=== PATIENT | male | born 1970 | race Caucasian/White ===

== ENCOUNTER 2018-01-25 18:28 | Emergency (ER) | payer OTHER ==
[2018-01-25] MEDS ORDERED: HYDROcodone/APAP 5-325MG 1 EACH TAB PO STA ×2 (18:46→21:01)
[2018-01-25] MEDS ORDERED: MORPHINE SULFATE 4 MG/ML SYRINGE IM STA (18:46)
[2018-01-25] MEDS ORDERED: LORazepam 1 MG TAB PO STA (18:46)
[2018-01-25] MEDS ORDERED: IBUPROFEN 800 MG TAB PO STA (18:46)
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
--- NOTE | 2018-01-25 21:06 | XR ---
EXAMINATION TYPE: XR wrist complete RT DATE OF EXAM: 01/25/2018 COMPARISON: NONE HISTORY: Pain TECHNIQUE: 3 views FINDINGS: There is an acute slightly impacted transverse fracture of the distal radial metaphysis. Th ere is no dislocation. The carpal bones appear intact. The views are suboptimal. CONCLUSION: Acute fracture distal radius with slight impaction. No obvious carpal bone fracture.
--- NOTE | 2018-01-25 21:07 | XR ---
EXAMINATION TYPE: XR elbow complete RT DATE OF EXAM: 01/25/2018 COMPARISON: NONE HISTORY: Shoulder pain elbow pain TECHNIQUE: 4 views FINDINGS: I see no fracture nor dislocation. Elbow joint spaces are normal. There is no sign of elbow joint effusion. IMPRESSION: Negative right elbow exam.
--- NOTE | 2018-01-25 21:08 | XR ---
EXAMINATION TYPE: XR shoulder complete RT DATE OF EXAM: 01/25/2018 COMPARISON: NONE HISTORY: Shoulder pain TECHNIQUE: 3 views FINDINGS: I see no fracture nor dislocation. Joint spaces are normal. There are no pathologic calcifi cations. IMPRESSION: Negative right shoulder exam.
[2018-01-25 21:46] VITALS: BP 127/74; PULSE 89; RESP 18; TEMP 97.9
--- NOTE | 2018-01-25 21:58 | XR ---
EXAMINATION TYPE: XR wrist limited RT DATE OF EXAM: 01/25/2018 COMPARISON: Today HISTORY: Post reduction TECHNIQUE: 2 views FINDINGS: 2 views are obtained through the cast that show anatomic position of the radius distal frac ture. Carpal bones appear intact. IMPRESSION: Satisfactory reduction. No complicating process seen.
== END 2018-01-25 21:46 | disposition home or self-care (01) ==
LOC: EC 18:28
DX: S52.501A Unspecified fracture of the lower end of right radius, initial encounter for closed fracture (principal); I10 Essential (primary) hypertension; M10.9 Gout, unspecified; F41.9 Anxiety disorder, unspecified; F32.9 Major depressive disorder, single episode, unspecified; F43.10 Post-traumatic stress disorder, unspecified; Z98.890 Other specified postprocedural states; Z79.899 Other long term (current) drug therapy; W23.0XXA Caught, crushed, jammed, or pinched between moving objects, initial encounter; Y92.89 Other specified places as the place of occurrence of the external cause
CPT/HCPCS: 99284; 25605; 73030; 73080; 73100; 73110; J2270

== ENCOUNTER 2018-11-21 14:01 | Emergency (ER) | payer OTHER ==
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
[2018-11-21 14:28] LABS: Glucose,Whole Blood 98 mg/dL (75-99)
[2018-11-21 14:31] LABS: Basophils # (A) 0.1 k/uL (0-0.2); Basophils % (A) 1 %; Eosinophils # (A) 0.3 k/uL (0-0.7); Eosinophils % (A) 4 %; HCT 48.6 % (39.0-53.0); Lymphocytes # (A) 1.5 k/uL (1.0-4.8); Lymphocytes % (A) 20 %; MCH 30.4 pg (25.0-35.0); MCV 92.3 fL (80.0-100.0); Mean Platelet Volume 7.3; Monocytes # (A) 0.4 k/uL (0-1.0); Monocytes % (A) 5 %; Neutrophils # (A) 5.3 k/uL (1.3-7.7); Neutrophils % (A) 69 %; Platelet Count 255 k/uL (150-450); RBC 5.27 m/uL (4.30-5.90); RDW 13.9 % (11.5-15.5); WBC 7.7 k/uL (3.8-10.6)
--- NOTE | 2018-11-21 14:32 | XR ---
EXAMINATION TYPE: XR chest 1V portable DATE OF EXAM: 11/21/2018 COMPARISON: 04/12/2010 HISTORY: Fall. Pain. TECHNIQUE: Single frontal view of the chest is obtained. FINDINGS: Heart and mediastinum are normal. Lungs are clear. Diaphragm is normal. Bony thorax appear s normal. IMPRESSION: Normal chest. No change.
--- NOTE | 2018-11-21 14:33 | XR ---
EXAMINATION TYPE: XR pelvis AP view DATE OF EXAM: 11/21/2018 COMPARISON: NONE HISTORY: Fall. Pain. TECHNIQUE: Single view FINDINGS: Pelvic ring is intact. Proximal femurs and hip joints are intact. There are multiple phlebo liths in the pelvis. Sacroiliac joints appear normal. IMPRESSION: Normal pelvis exam.
[2018-11-21 14:37] LABS: ALT 35 U/L (21-72); AST 30 U/L (17-59); Albumin 4.3 g/dL (3.5-5.0); Alcohol <10 mg/dL; Alkaline Phosphatase 42 U/L (38-126); Amylase 60 U/L (30-110); Anion Gap 7 mmol/L; Blood Urea Nitrogen 14 mg/dL (9-20); Calcium 9.6 mg/dL (8.4-10.2); Carbon Dioxide 21 mmol/L (22-30); Chloride 116 mmol/L (98-107); Glucose 104 mg/dL (74-99); Lipase 101 U/L (23-300); Sodium 144 mmol/L (137-145); Total Bilirubin 0.7 mg/dL (0.2-1.3); Total Protein 6.8 g/dL (6.3-8.2)
[2018-11-21 14:44] LABS: Creatine Kinase 190 U/L (55-170)
[2018-11-21 14:55] LABS: Potassium 4.8 mmol/L (3.5-5.1)
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
[2018-11-21 14:57] LABS: Creatine Kinase MB 2.5 ng/mL (0.0-2.4); Troponin I <0.012 ng/mL (0.000-0.034)
[2018-11-21 15:01] LABS: INR 0.9 (<1.2); Prothrombin Time 9.9 sec (9.0-12.0)
[2018-11-21 15:07] LABS: Partial Thromboplastin Time 21.3 sec (22.0-30.0)
--- NOTE | 2018-11-21 15:38 | XR ---
EXAMINATION TYPE: XR forearm RT DATE OF EXAM: 11/21/2018 COMPARISON: NONE HISTORY: Arm pain TECHNIQUE: 2 views FINDINGS: Elbow joint and wrist joint appear intact. I see no fracture nor dislocation. IMPRESSION: No fracture seen.
--- NOTE | 2018-11-21 15:41 | XR ---
EXAMINATION TYPE: XR humerus RT DATE OF EXAM: 11/21/2018 COMPARISON: NONE HISTORY: Arm pain TECHNIQUE: 2 views FINDINGS: Shoulder joint and elbow joint appear intact. I see no fracture nor dislocation. IMPRESSION: Negative right humerus exam.
== END 2018-11-21 16:12 | disposition short-term general hospital (02) ==
LOC: EC 14:01
DX: S06.0X0A Concussion without loss of consciousness, initial encounter (principal); S40.021A Contusion of right upper arm, initial encounter; I10 Essential (primary) hypertension; F41.9 Anxiety disorder, unspecified; F32.9 Major depressive disorder, single episode, unspecified; Z79.899 Other long term (current) drug therapy; Z88.7 Allergy status to serum and vaccine; Z98.1 Arthrodesis status; V86.52XA Driver of snowmobile injured in nontraffic accident, initial encounter; Y93.29 Activity, other involving ice and snow
CPT/HCPCS: 36415; 70450; 71045; 72125; 72170; 80053; 80320; 82150; 82550; 82553; 83605; 83690; 84484; 85025; 85610; 85730; 86850; 86900; 86901; 99291

== ENCOUNTER 2021-11-04 16:20 | Emergency (ER) | payer OTHER ==
[2021-11-04 16:57] VITALS: BP 150/99; PULSE 97; RESP 18; TEMP 98
--- NOTE | 2021-11-04 18:16 | XR ---
EXAMINATION TYPE: XR knee complete LT DATE OF EXAM: 11/04/2021 COMPARISON: NONE HISTORY: Knee pain. Fall TECHNIQUE: FINDINGS: There is below-knee amputation deformity. I see no fracture nor dislocation. Knee joint spaces are no rmal. There are no pathologic calcifications. There is no sign of joint effusion. IMPRESSION: No acute abnormality of the left knee.
--- NOTE | 2021-11-04 18:20 | XR ---
EXAMINATION TYPE: XR hand limited LT DATE OF EXAM: 11/04/2021 COMPARISON: NONE HISTORY: Fall. Pain TECHNIQUE: 3 views FINDINGS: Metacarpals are intact. I see no fracture nor dislocation. Carpal bones are intact. There a re no erosions. The thumb appears intact. IMPRESSION: Negative left hand exam. No fracture seen.
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
== END 2021-11-04 20:10 | disposition home or self-care (01) ==
LOC: EC 16:20
DX: S89.92XA Unspecified injury of left lower leg, initial encounter (principal); S63.602A Unspecified sprain of left thumb, initial encounter; I10 Essential (primary) hypertension; F41.9 Anxiety disorder, unspecified; F32.A Depression, unspecified; F43.10 Post-traumatic stress disorder, unspecified; Z88.7 Allergy status to serum and vaccine; W00.0XXA Fall on same level due to ice and snow, initial encounter
CPT/HCPCS: 99283

== ENCOUNTER 2024-12-04 11:06 | Inpatient (IN) | payer OTHER, MEDICARE ==
[2024-12-04] MEDS ORDERED: HEPARIN SODIUM 1,000 UN/ML (10ML VL) IV PRN (11:23)
--- NOTE | 2024-12-04 11:26 | ED ---
General Adult HPI - General Stated complaint: Chest pain Time Seen by Provider: 12/04/24 11:17 - History of Present Illness Initial comments: Dictation was produced using [employer] dictation software. please excuse any grammatical, word or spelling errors. Chief Complaint: 53-year-old male with chest pain History of Present Illness: Patient is 53-year-old male presents emergency department chest pain. States his symptoms have been ongoing for the last 2 to 3 hours. States that it is like a pressure on his chest that radiates to his right shoulder. Complains of some tingling in his left arm. Does report some diaphoresis and sweats. Patient has a significant family history. His dad had his first heart attack in his 50s. Patient denies any cardiac history. EMS provided patient with 3 sublingual nitro with slightly improved his symptoms. Iker sheldon was given a prehospital aspirin. The ROS documented in this emergency department record has been reviewed and confirmed by me. Those systems with pertinent positive or negative responses have been documented in the HPI. All other systems are other negative and/or noncontributory. - Related Data Home Medications Medication Instructions Recorded Confirmed DULoxetine HCL [Cymbalta] 60 mg PO BID 01/25/18 11/21/18 Topiramate [Topamax] 100 mg PO BID 01/25/18 11/21/18 allopurinoL [Zyloprim] 300 mg PO DAILY 01/25/18 11/21/18 lisinopriL [Zestril] 20 mg PO DAILY 01/25/18 11/21/18 traZODone HCL 50 - 100 mg PO HS 01/25/18 11/21/18 Previous Rx's Medication Instructions Recorded Acetaminophen-Codeine 300-30mg 1 tab PO Q6H PRN #12 tablet 11/04/21 [Tylenol #3] Allergies Allergy/AdvReac Type Severity Reaction Status Date / Time smallpox vaccine,live Allergy Anaphylaxis Verified 12/04/24 11:26 typhoid vaccine Allergy Anaphylaxis Verified 12/04/24 11:26 Review of Systems ROS Statement: Those systems with pertinent positive or pertinent negative responses have been documented in the HPI. ROS Other: All systems not noted in ROS Statement are negative. Past Medical History Past Medical History: Hypertension Additional Past Medical History / Comment(s): Gout History of Any Multi-Drug Resistant Organisms: None Reported Additional Past Surgical History / Comment(s): Left foot surgery x 5, Right knee surgery x 2, Right shoulder surgery, C5-C7 Fusion, Kidney surgery x 3 Past Psychological History: Anxiety, Depression, PTSD Smoking Status: Never smoker Past Alcohol Use History: Rare Past Drug Use History: None Reported General Exam - General Exam Comments Initial Comments: PHYSICAL EXAM: General Impression: Alert and oriented x3, n acute distress secondary chest pain HEENT: Normocephalic atraumatic, extra-ocular movements intact, pupils equal and reactive to light bilaterally, mucous membranes moist. Cardiovascular: Heart regular rate and rhythm Chest: Able to complete full sentences, no retractions, no tachypnea Abdomen: abdomen soft, non-tender, non-distended, no organomegaly Musculoskeletal: Amputated left lower extremity, no peripheral edema Motor: no focal deficits noted Neurological: CN II-XII grossly intact, no focal motor or sensory deficits noted Skin: Intact with no visualized rashes Psych: Normal affect and mood Course Vital Signs 12/04/24 11:10 Temperature 97.9 F Pulse Rate 65 Respiratory 30 H Rate Blood Pressure 127/92 O2 Sat by Pulse 100 Oximetry - Reevaluation(s) Reevaluation #1: 12/04/24 11:40 Serial EKGs is obtained showing dynamic changes. Code STEMI paged. Case discussed with cardiology. Dr. Mcclellan at the bedside evaluating patient. EKG Findings - EKG Comments: EKG Findings:: My EKG interpretation: Ventricular rate 71, sinus rhythm,. 194, QRS 82, QTc 424. No IL prolongation, no QTC prolongation, subtle ST elevations in anterior precordial leads with depressions in inferior leads Medical Decision Making - Medical Decision Making Was pt. sent in by a medical professional or institution (, PA, [facility], urgent care, hospital, or jail...) When possible be specific @ -No Did you speak to anyone other than the patient for history (EMS, parent, family, police, friend...)? What history was obtained from this source @ -No Did you review nursing and triage notes (agree or disagree)? Why? @ -I reviewed and agree with nursing and triage notes Were old charts reviewed (outside hosp., previous admission, EMS record, old EKG, old radiological studies, urgent care reports/EKG's, jail records)? Report findings @ -No old charts were reviewed Differential Diagnosis (chest pain, altered mental status, abdominal pain women, abdominal pain men, vaginal bleeding, musculoskeletal, weakness, fever, dyspnea, syncope, headache, dizziness, GI bleed, back pain, seizure, CVA, palpatations, mental health)? @ -Differential Chest Pain: Stable Angina, Unstable Angina, STEMI, NSTEMI Aortic Dissection, Pneumothorax, Musculoskeletal, Esophageal Spasm GERD, Cholecystitis, Pancreatitis, Zoster, this is not meant to be an all-inclusive list. EKG interpreted by me (3pts min.). @ -See above X-rays interpreted by me (1pt min.). @ -Pending CT interpreted by me (1pt min.). @ -None done U/S interpreted by me (1pt. min.). @ -None done What testing was considered but not performed or refused? (CT, X-rays, U/S, labs)? Why? @ -None What meds were considered but not given or refused? Why? @ -None Was smoking cessation discussed for >3mins.? @ -No Were there social determinants of health that impacted care today? How? (Homelessness, low income, unemployed, alcoholism, drug addiction, t ransportation, low edu. Level, literacy, decrease access to med. care, alf, rehab)? @ -No Was there de-escalation of care discussed even if they declined (Discuss DNR or withdrawal of care, Hospice)? DNR status @ -No What co-morbidities impacted this encounter? (DM, HTN, Smoking, COPD, CAD, Cancer, CVA, ARF, Chemo, Hep., AIDS, mental health diagnosis, sleep apnea, morbid obesity)? @ -Family history of [place] Was patient admitted / discharged? Hospital course, mention meds given and route, prescriptions, significant lab abnormalities, going to OR and other pertinent info. @ -53-year-old male presents to the emergency department with acute coronary syndrome. Initial EKG questionable for [place]. Serial EKGs performed shortly after showed dynamic changes. Vital signs stable. Patient received aspirin and nitro by prehospital providers. Patient started on heparin. Code STEMI paged. Dr. Mcclellan at the bedside evaluating the patient. Patient will be dispositioned to the Scenario Writer. Case discussed with hospitalist for admission Did you discuss the management of the patient with other professionals (professionals i.e. , PA, [employer], lab, RT, psych nurse, social work specialist, chief lending officer, teacher, chief safety officer, case manager specialist)? Give summary @ -See above Was critical care preformed (if so, how long)? @ -Yes, 33 minutes for STEMI management Undiagnosed new problem with uncertain prognosis? @ -No Drug Therapy requiring intensive monitoring for toxicity (Heparin, Nitro, Insulin, Cardizem)? @ -No Were any procedures done? @ -No Diagnosis/symptom? Acute, or Chronic, or Acute on Chronic? Uncomplicated (without systemic symptoms) or Complicated (systemic symptoms)? @ -STEMI Side effects of treatment? @ -No Exacerbation, Progression, or Severe Exacerbation? @ -No Poses a threat to life or bodily function? How? (Chest pain, [place], [place], pneumonia, PE, COPD, DKA, ARF, appy, cholecystitis, CVA, Diverticulitis, Homicidal, Suicidal, threat to staff... and all critical care pts) @ -yes Disposition Clinical Impression: STEMI (ST elevation myocardial infarction) Disposition: ADMITTED IP TO THIS HOSP Condition: Critical Referrals: Adarsh Nolen DO [Primary Care Provider] - 1-2 days Decision Time: 11:42
[2024-12-04] MEDS: MORPHINE SULFATE 4 MG/ML SYRINGE IV STA (11:38)
[2024-12-04] MEDS: HEPARIN SODIUM 1,000 UN/ML (10ML VL) IV ONE (11:40)
[2024-12-04] MEDS: HYDROmorphone 1 MG/ML 1 ML SYRINGE IVP STA (11:43)
--- NOTE | 2024-12-04 11:52 | XR ---
EXAMINATION TYPE: XR chest 1V portable DATE OF EXAM: 12/04/2024 11:45 AM COMPARISON: Chest radiographs from 11/21/2018 TECHNIQUE: XR chest 1V portable Portable AP radiograph of the chest. CLINICAL INDICATION:Male, 53 years old with history of Chest Pain; FINDINGS: Lungs/Pleura: There is no evidence of pleural effusion, focal consolidation, or pneumothorax. Chroni c elevation of the right hemidiaphragm. Pulmonary vascularity: Unremarkable. Heart/mediastinum: Cardiomediastinal silhouette is unremarkable. Musculoskeletal: No acute osseous pathology. Anterior and posterior cervical fusion hardware. Cervica l stimulator leads are identified. IMPRESSION: No acute cardiopulmonary disease/process. [facility], , 12/04/2024 11:50 AM
[2024-12-04] MEDS: HEPARIN SOD,PORK IN 0.45% NACL 25,000 UNIT in 0.45% NACL 1 250ML.BAG IV SCH (12:00)
[2024-12-04 12:02] LABS: ALT 23 U/L (4-49); AST 29 U/L (17-59); African American GFR (CKD) 82 (>60 ml/min/1.73 sqM); Albumin 4.3 g/dL (3.5-5.0); Alkaline Phosphatase 65 U/L (38-126); Anion Gap 15 mmol/L; Blood Urea Nitrogen 19 mg/dL (9-20); Calcium 9.5 mg/dL (8.4-10.2); Carbon Dioxide 18 mmol/L (22-30); Chloride 106 mmol/L (98-107); Glucose 170 mg/dL (74-99); Non-African American GFR(CKD) 71 (>60 ml/min/1.73 sqM); Potassium 4.2 mmol/L (3.5-5.1); Sodium 139 mmol/L (137-145); Total Bilirubin 0.8 mg/dL (0.2-1.3); Total Protein 6.8 g/dL (6.3-8.2)
[2024-12-04] MEDS: IV FLUID CONTINUATION 1,000 ML IV ONE (12:15)
[2024-12-04] MEDS: fentaNYL (PF) 50 MCG/ML 2 ML AMP IVP ONE (12:16)
[2024-12-04] MEDS: MIDAZOLAM 2 MG/2 ML VIAL IVP ONE (12:16)
[2024-12-04] MEDS: LIDOCAINE 1% INJ 10MG/ML (20 ML MDV) SQ ONE (12:16)
[2024-12-04 12:17] LABS: Basophils % (A) 1 %; Eosinophils # (A) 0.2 k/uL (0-0.7); Eosinophils % (A) 3 %; HCT 49.7 % (39.0-53.0); HGB 15.9 gm/dL (13.0-17.5); Lymphocytes % (A) 17 %; MCH 28.5 pg (25.0-35.0); MCV 88.9 fL (80.0-100.0); Mean Platelet Volume 8.5; Monocytes # (A) 0.3 k/uL (0-1.0); Monocytes % (A) 5 %; Neutrophils # (A) 4.6 k/uL (1.3-7.7); Neutrophils % (A) 74 %; Platelet Count 246 k/uL (150-450); RBC 5.59 m/uL (4.30-5.90); RDW 14.3 % (11.5-15.5); WBC 6.2 k/uL (3.8-10.6)
[2024-12-04] MEDS: VERAPAMIL SYRINGE (5 MG/10 ML) INTRAARTER ONE (12:18)
[2024-12-04] MEDS: HEPARIN SODIUM 1,000 UN/ML (10ML VL) IVP ONE (12:22)
[2024-12-04 12:27] LABS: Partial Thromboplastin Time 20.2 sec (22.0-30.0)
[2024-12-04] MEDS: PRASUGREL 10 MG TAB PO ONE (12:30)
[2024-12-04] MEDS: TIROFIBAN BOLUS 12.5MG/250 ML BAG IV ONE (13:00)
[2024-12-04] MEDS: IOPAMIDOL-370 100ML BTL INJ ONE ×3 (13:06→13:42)
[2024-12-04] MEDS: TIROFIBAN 12.5MG-250ML NS 250 ML IV ONE ×2 (13:06→23:06)
[2024-12-04] MEDS: niCARdipine Syringe (1,000 mcg/10 mL) INTRACORON ONE (13:10)
--- NOTE | 2024-12-04 13:53 | CONS ---
CONSULTATION CHIEF COMPLAINT: Chest pain. HISTORY OF PRESENT ILLNESS: Julio is a 53-year-old gentleman, with history of hypertension, gout, with left leg prosthesis, who presents to hospital with chest pain. His chest discomfort started suddenly around about 2 hours prior to coming to the hospital. He describes it as a pressure-like sensation that radiated to his right shoulder and back. A STEMI alert was activated at around 11:35. The patient's initial EKG that was done at 11:[address]-segment elevation in the precordial leads that had become more pronounced, suggestive of acute anterior wall myocardial infarction. At the time of my evaluation, the patient had chest pain, but stable hemodynamically. There is no prior history of coronary artery disease or congestive heart failure. PAST MEDICAL HISTORY: Significant for hypertension and gout. FAMILY HISTORY: Significant for premature coronary artery disease. SOCIAL HISTORY: Negative for current smoking, EtOH abuse, or drug abuse. REVIEW OF SYSTEMS: A 14 out of 14 review of systems has been performed. Pertinents are as documented. PHYSICAL EXAMINATION: GENERAL: The patient is comfortable at rest, stable hemodynamically. NECK: There is no jugular venous distention. Carotid upstroke is normal. There is no bruit. CHEST: Reveals good air entry bilaterally. HEART: Reveals first and second heart sounds. No gallop. No murmur. No rub. ABDOMEN: Soft. Nontender. Extremities: Did not reveal any edema. Peripheral pulses are felt. IMAGING DATA: EKG shows acute anterior wall myocardial infarction. LABORATORY DATA: Pending. ASSESSMENT AND PLAN: Acute anterior wall myocardial infarction. PLAN: The patient will undergo emergent cardiac catheterization with a view to performing angioplasty. MMODL / IJN: [id number] /
[2024-12-04] MEDS ORDERED: NITROGLYCERIN SL TABS 0.4 MG TAB SUBLINGUAL PRN (13:59)
[2024-12-04] MEDS ORDERED: RX INFO: IV CONTRAST WAS GIVEN 1 EACH MISC MISCELLANE PRN (13:59)
[2024-12-04] MEDS ORDERED: ATROPINE SULFATE 0.1 MG/ML 10ML SYRINGE IV PRN (13:59)
--- NOTE | 2024-12-04 14:11 | P.CARDCATH ---
Date of Procedure: 12/04/24 Description of Procedure: PERCUTANEOUS TRANSLUMINAL CORONARY ANGIOPLASTY CLINICAL INFORMATION: The patient is a 53-year-old male with a prior history of hypertension who presented with an acute anterior wall myocardial infarction. He has a family history of premature CAD. He underwent coronary angiography by Dr. Mcclellan. He was found to have acutely occluded proximal LAD. Recommendations were made regarding angioplasty and stenting. The procedure as well as the risks and the complications were discussed with the patient who was in full understanding and agreement. PROCEDURE: A 6 Tongan CLS 3.5 guiding catheter was introduced into the system. After cannulating the left main, a 0.014 BMW J-wire was advanced across the lesion and positioned distally. Following that a 2.5 x 12 mm trek balloon was advanced and inflated at 8 atmosphere. After removing the balloon a penumbra catheter was advanced and 1 run was done without removing significant thrombotic material. Following that a [employer] eye IVUS catheter was introduced and imaging was performed and revealed a distal lumen of 3.5 mm and proximally 5.5 mm. The lesion was not calcified. following that a 3.5 x 28 mm Xience venkata point stent was deployed. It was dilated at 16 martita. Repeat IVUS imaging was performed and subsequently a 4.0 x 20 mm NC trek balloon was advanced and an inflation at 10 martita was done. Following that there was evidence of no reflow. Repeat penumbra aspiration was done. The patient received intra coronary nicardipine. Subsequently a 3.0 x 20 mm NC trek balloon was advanced and 1 inflation distally was done and after removing the balloon the flow was restored and a 3.25 x 20 mm NC trek balloon was advanced and inflation in the distal segment of the stent was done at 10 martita, a 5.0 x 12 mm NC trek balloon was advanced and 1 inflation in the proximal segment of the stent was done at 10 martita. Repeat IVUS imaging was performed and subsequently the 4.0 x 20 mm NC trek balloon was advanced and inflations in the mid segment of the stent was performed at 10 martita. After the last inflation, after appropriate wait, the balloon and the guidewire were withdrawn back into the guiding catheter. Images were obtained and repeated. Those images reveal stable successful stenting. The 5 Tongan right Angle catheter was used to cross the aortic valve and pressures were measured. At that point, the guiding catheter, the balloon, and guidewire were removed. The sheath was removed. Hemostasis was obtained with deployment of a TR band. There were no immediate complications. The patient was returned to the room in stable condition. Of note, the patient received 6000 units of heparin as well as prasugrel. His ACT was followed. There was no immediate complications. His chest discomfort has resolved at the end of the procedure and his EKG changes improved. RESULTS: Successful stenting of the proximal LAD with reduction of stenosis from 100% to less than 5% with EMILY-3 flow and IVUS imaging. There was slow flow in the diagonal branch but appears to be have retrograde filling. The di stal LAD has intimal disease that could be related to underperfusion and it was decided to treated medically for now. LVEDP: 24 to 26 mmHg RECOMMENDATIONS: The patient will continue on aspirin and prasugrel without any interruption for 1 year in addition to aggressive coronary risks modifications, maintaining LDL less than 70 mg/dL. An echocardiogram will be obtained to evaluate his systolic function and guide his treatment. The findings and recommendations were discussed with the patient and the family, they are in full understanding and agreement. Duration of sedation: 76 minutes
[2024-12-04 14:15] LABS: Glucose,Whole Blood 106 mg/dL (70-110)
[2024-12-04] MEDS: SODIUM CHLORIDE 0.9% 1,000 ML in EMPTY BAG 1 BAG IV SCH (14:53)
--- NOTE | 2024-12-04 15:20 | P.HPIM ---
History of Present Illness H&P Date: 12/04/24 Patient is a 53-year-old male with history of hypertension, and gout presented with STEMI. He claims that he woke up this morning with his chest and a Cooper, pain moved from left to right, and had diaphoresis. He also felt a little lightheaded. Denies any shortness of breath, nausea, vomiting, abdominal pain, urinary or bowel complaints. No fevers or chills. His father had 2 heart at tacks around the same age as him. He denies any smoking, alcohol use or illicit drug use. In the ED, temperature was 97.9, pulse 65, respiratory rate 30, blood pressure 127/92, saturating 100% on room air. WBC 6.2, hemoglobin 15.9, APTT 20.2, potassium 4.2, creatinine 1.17, bicarb 18, anion gap 15, troponin 0.923, magnesium 2. Chest x-ray independently interpreted, showed no opacities. EKG independently interpreted, shows ST elevation in anterior and septal leads, ST depression in inferior leads. Patient taken directly to cardiac cath. Patient had successful stenting of proximal LAD. Patient currently in medical ICU. Pertinent positives and negatives as discussed in HPI, a complete review of systems was performed and all other systems are negative. Patient seen and examined at bedside. Vital signs reviewed General: nontoxic, no distress, appears at stated age Derm: warm, dry Head: atraumatic, normocephalic, symmetric Eyes: EOMI, no lid lag, anicteric sclera, pupils equal round reactive to light ENT: Nose and ears atraumatic Neck: No thyromegaly, supple Mouth: no lip lesion, mucus membranes moist Cardiovascular: S1S2 reg, no murmur, no edema Lungs: clear to auscultation bilateral, no rhonchi, no rales, no wheeze, no accessory muscle use Abdominal: soft, nontender to palpation, no guarding, no appreciable organomegaly Ext: no gross muscle atrophy, muscle strength muscle strength 5 out of 5 in all 4 extremities, no contractures Neuro: CN II-XII grossly intact Psych: Alert, oriented, appropriate affect Assessment/Plan: Active: Acute STEMI status post LAD stent -Continue aspirin 81 mg daily, atorvastatin 80 mg nightly, metoprolol 25 twice daily, Effient 10 mg daily -Cardiology following -Echocardiogram pending -Continue to trend troponin till it peaks -A1c, lipid panel, TSH pending Anion gap metabolic acidosis -Repeat BMP tomorrow Chronic: Gout Neuropathy -Restart home medications once confirmed The patient is admitted with an anticipated greater than 2 midnight stay as inpatient status for evaluation of acute STEMI. Surrogate decision-maker: Son CODE STATUS: Full code DVT prophylaxis: Subcu heparin Anticipated discharge date: Pending clinical course Anticipated discharge place: Pending clinical course A total of 65 minutes was spent on the care of this complex patient more than 50% of the time was spent in counseling and care coordination. Past Medical History Past Medical History: Hypertension Additional Past Medical History / Comment(s): Gout History of Any Multi-Drug Resistant Organisms: None Reported Additional Past Surgical History / Comment(s): Left foot surgery x 5, Right knee surgery x 2, Right shoulder surgery, C5-C7 Fusion, Kidney surgery x 3 Past Psychological History: Anxiety, Depression, PTSD Smoking Status: Never smoker Past Alcohol Use History: Rare Past Drug Use History: None Reported Medications and Allergies Home Medications Medication Instructions Recorded Confirmed Type DULoxetine HCL [Cymbalta] 60 mg PO BID 01/25/18 11/21/18 History Topiramate [Topamax] 100 mg PO BID 01/25/18 11/21/18 History allopurinoL [Zyloprim] 300 mg PO DAILY 01/25/18 11/21/18 History lisinopriL [Zestril] 20 mg PO DAILY 01/25/18 11/21/18 History traZODone HCL 50 - 100 mg PO HS 01/25/18 11/21/18 History Acetaminophen-Codeine 300-30mg 1 tab PO Q6H PRN #12 tablet 11/04/21 Rx [Tylenol #3] Allergies Allergy/AdvReac Type Severity Reaction Status Date / Time smallpox vaccine,live Allergy Anaphylaxis Verified 12/04/24 11:26 typhoid vaccine Allergy Anaphylaxis Verified 12/04/24 11:26 Physical Exam Vitals: Vital Signs Temp Pulse Resp BP Pulse Ox 12/04/24 11:57 68 20 140/96 98 12/04/24 11:52 71 26 H 136/91 99 12/04/24 11:10 97.9 F 65 30 H 127/92 100 Intake and Output 03/15/25 03/16/25 03/16/25 22:59 06:59 14:59 Intake Total 961 Balance 961 Intake: IV 961 Other: Weight 105.233 kg Results CBC & Chem 7: 12/04/24 11:41 12/04/24 11:41 Labs: Abnormal Lab Results - Last 24 Hours (Table) 12/04/24 12/04/24 12/04/24 Range/Units 11:41 11:41 11:41 APTT 20.2 L (22.0-30.0) sec Carbon Dioxide 18 L (22-30) mmol/L Glucose 170 H (74-99) mg/dL Troponin I 0.923 H* (0.000-0.034) ng/mL
[2024-12-04] MEDS: HEPARIN SODIUM,PORCINE 5,000 UNIT/ML 1 ML VIAL SQ SCH (16:15)
[2024-12-04] MEDS ORDERED: PANTOPRAZOLE 40 MG TABLET PO PRN (17:55)
--- NOTE | 2024-12-04 19:32 | CC ---
CARDIAC CATHETERIZATION REPORT INDICATION: Acute anterior wall myocardial infarction. PROCEDURE NOTE: After obtaining informed consent, left heart catheterization and coronary angiogram were performed via the right radial artery using standard Angle catheters. The patient tolerated the procedure well without any obvious immediate complications. FINDINGS: 1. Hemodynamics: Central aortic pressure is 120/70 mm. 2. Left ventriculogram: Not performed. 3. Angiographic data: a.Right coronary artery: A large dominant vessel and is free of significant stenosis. b.Left main coronary artery is a normal-sized vessel and is free of stenosis, divides into left anterior descending coronary artery and circumflex coronary artery. c.LAD appears totally occluded in the proximal portion, which is responsible for the myocardial infarction. CONCLUSION: Acute proximal LAD occlusion. PLAN: The patient will undergo angioplasty with stent placement of the same. MMODL / IJN: [id number] /
[2024-12-04] MEDS: COLCHICINE 0.6 MG EACH PO SCH (20:35)
[2024-12-04] MEDS: SPIRONOLACTONE 25 MG TAB PO SCH (20:36)
[2024-12-04] MEDS: allopurinoL 100 MG TAB PO SCH (20:36)
[2024-12-04] MEDS: ATORVASTATIN 80 MG TAB PO SCH (20:36)
[2024-12-04] MEDS: MAG HYDROX/AL HYDROX/SIMETH 30 ML CUP PO PRN (20:38)
[2024-12-04] MEDS: NITROGLYCERIN SL TABS 0.4 MG TAB SUBLINGUAL PRN (21:41)
[2024-12-04] MEDS: ZOLPIDEM 5 MG TAB PO PRN (23:11)
[2024-12-05] MEDS: HYDROmorphone 0.5 MG/0.5 ML SYRINGE IVP STA ×2 (00:03→06:24)
[2024-12-05 04:54] LABS: Basophils % (A) 0 %; Eosinophils # (A) 0.1 k/uL (0-0.7); Eosinophils % (A) 1 %; HCT 46.2 % (39.0-53.0); HGB 14.5 gm/dL (13.0-17.5); Lymphocytes # (A) 1.2 k/uL (1.0-4.8); Lymphocytes % (A) 11 %; MCH 28.3 pg (25.0-35.0); MCHC 31.4 g/dL (31.0-37.0); MCV 90.2 fL (80.0-100.0); Mean Platelet Volume 8.2; Monocytes # (A) 0.5 k/uL (0-1.0); Monocytes % (A) 5 %; Neutrophils # (A) 8.6 k/uL (1.3-7.7); Neutrophils % (A) 82 %; Platelet Count 226 k/uL (150-450); RBC 5.12 m/uL (4.30-5.90); RDW 14.3 % (11.5-15.5); WBC 10.4 k/uL (3.8-10.6)
[2024-12-05 06:42] LABS: African American GFR (CKD) >90 (>60 ml/min/1.73 sqM); Anion Gap 8 mmol/L; Blood Urea Nitrogen 13 mg/dL (9-20); Calcium 9.2 mg/dL (8.4-10.2); Carbon Dioxide 25 mmol/L (22-30); Chloride 105 mmol/L (98-107); Glucose 115 mg/dL (74-99); Non-African American GFR(CKD) >90 (>60 ml/min/1.73 sqM); Potassium 4.2 mmol/L (3.5-5.1); Sodium 138 mmol/L (137-145)
[2024-12-05] MEDS ORDERED: HEPARIN SODIUM,PORCINE (1 ML) 2,500 UNIT in SODIUM CHLORIDE 0.9% 250 ML IRRIGATION PRN (07:00)
[2024-12-05] MEDS ORDERED: HEPARIN SODIUM,PORCINE 10,000 UNIT in SODIUM CHLORIDE 0.9% 1,000 ML IRRIGATION PRN (07:00)
[2024-12-05] MEDS: IV FLUID CONTINUATION 1,000 ML IV ONE (08:00)
[2024-12-05] MEDS: fentaNYL (PF) 50 MCG/ML 2 ML AMP IVP ONE (08:04)
[2024-12-05] MEDS: LIDOCAINE 1% INJ 10MG/ML (20 ML MDV) SQ ONE (08:07)
[2024-12-05] MEDS: VERAPAMIL SYRINGE (5 MG/10 ML) INTRAARTER ONE (08:10)
[2024-12-05] MEDS: HEPARIN SODIUM 1,000 UN/ML (10ML VL) IVP ONE (08:24)
[2024-12-05] MEDS ORDERED: ASPIRIN 325 MG TAB PO SCH (09:00)
[2024-12-05 09:29] LABS: Chol/HDL Ratio 4.78 Ratio; LDL Cholesterol,Calculated 97.1 mg/dL (0.0-131.0)
[2024-12-05] MEDS: IOPAMIDOL-370 100ML BTL INJ ONE (09:40)
[2024-12-05] MEDS: MIDAZOLAM 2 MG/2 ML VIAL IVP ONE (09:45)
[2024-12-05] MEDS: PRASUGREL 10 MG TAB PO ONE (09:55)
[2024-12-05] MEDS: ASPIRIN 325 MG TAB PO ONE (09:56)
[2024-12-05] MEDS: SODIUM CHLORIDE 0.9% 1,000 ML IV ONE (09:57)
[2024-12-05] MEDS: IOPAMIDOL-300 100ML BTL INJ ONE (10:07)
[2024-12-05] MEDS ORDERED: ATROPINE SULFATE 0.1 MG/ML 10ML SYRINGE IV PRN (10:20)
[2024-12-05] MEDS ORDERED: MAG HYDROX/AL HYDROX/SIMETH 30 ML CUP PO PRN (10:20)
[2024-12-05] MEDS ORDERED: ZOLPIDEM 5 MG TAB PO PRN (10:20)
[2024-12-05] MEDS ORDERED: NITROGLYCERIN SL TABS 0.4 MG TAB SUBLINGUAL PRN (10:20)
[2024-12-05] MEDS ORDERED: RX INFO: IV CONTRAST WAS GIVEN 1 EACH MISC MISCELLANE PRN (10:20)
--- NOTE | 2024-12-05 10:31 | P.CARDCATH ---
Date of Procedure: 12/05/24 Description of Procedure: PERCUTANEOUS TRANSLUMINAL CORONARY ANGIOPLASTY CLINICAL INFORMATION: The patient is a 53-year-old male with known history of prior hypertension, family history of premature CAD who presented on December 04 with an acute anterior wall myocardial infarction and acute occlusion of the p roximal LAD. He underwent stenting with quaker of flow and EMILY-3 flow and resolution of his pain. During the night he had mild discomfort that subsequently improved and earlier this morning he had recurrent chest discomfort with no ST elevation but with ST segment depression on the lateral limb leads. In view of his symptoms recommendation was made regarding repeating angiography and if needed angioplasty and stenting. The procedure as well as the risks and the complications were discussed with the patient who was in full understanding and agreement. PROCEDURE: The patient was brought to the [facility] in the fasting semisedated state after receiving fentanyl and Medrol. Using Xylocaine anesthesia in the Seldinger technique a 6 Guatemalan sheath was introduced in the left radial artery. A 6 Guatemalan CLS 3.5 guiding catheter was introduced into the system. After cannulating the left main, attempt to advance a 0.014 BMW J-wire with a TelePort microcatheter were unsuccessful. The wire was removed and a 0.014 whisper J was advanced across the lesion and positioned distally. The wire was exchanged over the TelePort microcatheter to a BMW J-wire. Following that a 3.0 x 12 mm trek balloon was advanced and inflated at 8 atmosphere in multiple locations, then a 2.5 x 12 mm trek balloon was advanced and inflation in the midsegment was done. After removing the balloon a [employer] eye IVUS catheter was introduced and revealed diffuse disease distally as well as under deployment proximally. Following that a 2.5 x 38 mm Xience venkata point stent stent was deployed in the midsegment. It was dilated at 16 martita. After removing the balloon another 2.5 x 12 mm Xience venkata point stent was deployed distal to the first 1 at 16 martita. Repeat IVUS imaging was performed and revealed good apposition of the distal stents. Subsequently a 4.5 x 15 mm NC trek balloon was advanced and multiple inflations in the proximal segment were done at 10 martita. After removing the balloon a 5.0 x 15 mm Xience venkata point stent was deployed at the ostium at 16 martita. Repeat IVUS imaging was performed and subsequently a 4.5 x 15 mm Xience venkata point stent was deployed inside the stent that was performed yesterday with the possibility of a flap dropping into the vessel through the stent. Repeat IVUS imaging was performed. A 5.5 x 12 mm trek balloon was advanced proximally and inflations were done at 10 martita. A guide liner 6 Guatemalan was used to help through the procedure. After the last inflation, after appropriate wait, the balloon and the guidewire were withdrawn back into the guiding catheter. Images were obtained and repeated. Those images reveal stable successful stenting. At that point, the guiding catheter, the balloon, and guidewire were removed. The sheath was removed. Hemostasis was obtained with deployment of a TR band. There were no immediate complications. The patient was returned to the room in stable condition. Of note, the patient received 14,000 units of heparin as well as continued on prasugrel. His ACT was followed. There was no immediate complications. His chest discomfort almost resolved at the end of the procedure and his EKG changes normalized RESULTS: Successful stenting of the proximal and mid LAD with reduction of stenosis from 100% to less than 5% with IVUS imaging and EMILY-3 flow. RECOMMENDATIONS: The patient will continue on aspirin and prasugrel in addition to aggressive coronary risks modification, attempting to maintain LDL below 70 mg/dL. An echocardiogram will be obtained to evaluate his systolic function. The findings and recommendations were discussed with the patient and he was in full understanding and agreement. Duration of sedation: 120 minutes
--- NOTE | 2024-12-05 10:38 | P.PN ---
Subjective Progress Note Date: 12/05/24 12/05/2024 patient seen and examined at bedside. Patient still having chest pain overnight. Cardiology plans to have repeat cath today. Labs today: WBC 10.4, hemoglobin 14.5, platelet count 2 26,000, sodium 138, potassium 4.2, chloride 105, bicarb 25, BUN 13, creatinine 0.88, glucose 115. Lipid panel showed elevated triglycerides at 163, LDL 97, HDL 34.3. TSH 0.8 Review of systems: Pertinent positives and negatives as discussed in HPI, a complete review of systems was performed and all other systems are negative. Physical examination: Vital signs reviewed General: non toxic, no distress, appears at stated age Derm: no unusual rashes/lesions, warm Head: atraumatic, normocephalic, symmetric Eyes: EOMI, anicteric sclera, pupils equal round reactive to light ENT: Nose and ears atraumatic Neck: No cervical lymphadenopathy, trachea midline, supple Mouth: no lip lesion, mucus membranes moist Cardiovascular: S1S2 reg, no murmur Lungs: CTA bilateral, no rhonchi, no rales, no accessory muscle use Abdominal: soft, nontender to palpation, no guarding Ext: muscle strength 5 out of 5 in all 4 extremities grossly, no gross muscle atrophy, no contractures, positive dorsalis pedis pulse present on right lower extremity and both upper extremities, no edema, left prosthetic leg noted Neuro: CN II-XI grossly intact, no gross focal neuro deficits Psych: Alert and oriented x3, appropriate affect and mood Assessment/Plan: 53-year-old male with hypertension, gout here for evaluation of chest pain. Found to have STEMI on EKG. Status post cath with LAD stent day 1 Active: #. Acute STEMI status post LAD stents #. Hyperlipidemia -Continue aspirin 81 mg daily, atorvastatin 80 mg nightly, metoprolol 25 twice daily, Effient 10 mg daily -Cardiology following. Will repeat cardiac cath today due to persistent chest pain -Echocardiogram pending -Continue to trend troponin till it peaks. -A1c 5.9 - lipid panel showed elevated triglycerides -TSH normal at 0.8 #. Anion gap metabolic acidosis, resolved Chronic: #. Gout #. Neuropathy -Restart home allopurinol, colchicine CODE STATUS: Full code DVT prophylaxis: Subcu heparin Anticipated discharge date: Pending clinical course Anticipated discharge place: Pending clinical course Georgette Goldstein MD PGY-1/Mill Order Scheduler Dictation was produced using [employer] dictation software. please excuse any grammatical, word or spelling errors. Patient is critically ill in ICU. needs close monitoring. prognosis guarded. I have seen and evaluated the patient today. Discussed with the resident and agree with the residents finding and plan as documented in the resident's note. Changes highlighted in blue font. Objective - Vital Signs Vital signs: Vital Signs Temp 98.4 F 12/05/24 04:00 Pulse 63 12/05/24 07:00 Resp 17 12/05/24 07:00 BP 130/92 12/05/24 07:00 Pulse Ox 94 L 12/05/24 07:00 FiO2 4 12/05/24 00:00 Intake & Output 12/04/24 12/05/24 12/05/24 18:59 06:59 18:59 Intake Total 1616.6 128.9 10 Output Total 0 1125 Balance 1616.6 -996.1 10 Weight 111.4 kg 113 kg Intake: IV 1256.6 128.9 10 Sodium Chloride 0.9% 1, 220 110 10 000 ml In Empty Bag 1 bag @ 1 ML/KG/HR 105.233 mls /hr IV .[id number] [facility] Rx#: [id number] Tirofiban 12.5MG-250Ml Ns 75.6 18.9 250 ml @ 0 mls/hr IV . [facility] Rx#: [id number] Oral 360 Output: Urine 0 1125 Other: Voiding Method Urinal Urinal - Labs CBC & Chem 7: 12/05/24 04:19 12/05/24 05:41 Labs: Abnormal Lab Results - Last 24 Hours (Table) 12/04/24 12/04/24 12/04/24 Range/Units 11:41 11:41 11:41 Neutrophils # (1.3-7.7) k/uL APTT 20.2 L (22.0-30.0) sec Carbon Dioxide 18 L (22-30) mmol/L Glucose 170 H (74-99) mg/dL Troponin I 0.923 H* (0.000-0.034) ng/mL 12/04/24 12/04/24 12/05/24 Range/Units 14:41 17:46 04:19 Neutrophils # 8.6 H (1.3-7.7) k/uL APTT (22.0-30.0) sec Carbon Dioxide (22-30) mmol/L Glucose (74-99) mg/dL Troponin I 20.700 H* 83.300 H* (0.000-0.034) ng/mL 12/05/24 Range/Units 05:41 Neutrophils # (1.3-7.7) k/uL APTT (22.0-30.0) sec Carbon Dioxide (22-30) mmol/L Glucose 115 H (74-99) mg/dL Troponin I (0.000-0.034) ng/mL
[2024-12-05] MEDS: ASPIRIN 325 MG TAB PO STA (10:40)
[2024-12-05] MEDS: PRASUGREL 10 MG TAB PO SCH (10:41)
[2024-12-05] MEDS: SODIUM CHLORIDE 0.9% 1,000 ML in EMPTY BAG 1 BAG IV SCH (10:43)
[2024-12-05] MEDS: METOPROLOL TARTRATE 25 MG TAB PO SCH (10:46)
[2024-12-05 14:42] VITALS: BMI 31.1
[2024-12-06 06:11] LABS: Basophils # (A) 0.1 k/uL (0-0.2); Basophils % (A) 0 %; Eosinophils # (A) 0.1 k/uL (0-0.7); Eosinophils % (A) 1 %; HCT 46.3 % (39.0-53.0); HGB 14.5 gm/dL (13.0-17.5); Lymphocytes # (A) 1.6 k/uL (1.0-4.8); Lymphocytes % (A) 15 %; MCH 27.9 pg (25.0-35.0); MCHC 31.4 g/dL (31.0-37.0); Mean Platelet Volume 8.4; Monocytes # (A) 0.8 k/uL (0-1.0); Monocytes % (A) 8 %; Neutrophils # (A) 7.9 k/uL (1.3-7.7); Neutrophils % (A) 75 %; Platelet Count 198 k/uL (150-450); RDW 14.3 % (11.5-15.5); WBC 10.6 k/uL (3.8-10.6)
[2024-12-06 06:32] LABS: African American GFR (CKD) >90 (>60 ml/min/1.73 sqM); Anion Gap 6 mmol/L; Blood Urea Nitrogen 10 mg/dL (9-20); Calcium 9.2 mg/dL (8.4-10.2); Carbon Dioxide 24 mmol/L (22-30); Chloride 103 mmol/L (98-107); Glucose 93 mg/dL (74-99); Non-African American GFR(CKD) >90 (>60 ml/min/1.73 sqM); Potassium 3.9 mmol/L (3.5-5.1); Sodium 133 mmol/L (137-145)
[2024-12-06] MEDS: ASPIRIN 81 MG PO SCH (08:13)
--- NOTE | 2024-12-06 10:22 | CA ---
Transthoracic Echo Report Name: Julio Reno Age: 53 Gender: M : 1970 Exam Date: 12/05/2024 13:06 Exam Location: [facility] Ht (in): 73 Wt (lb): 232 Ordering Physician: All Monroe MD ([id number]) Attending/Referring Phys: Crewman Armoured Personnel Carrier [id number] Yesenia Moore RDCS Procedure CPT: Indications: KS Cardiac Hx: 4 stents placed Technical Quality: Technically difficult study Contrast 1: Definity Total Dose (mL): 3 Contrast 2: Total Dose (mL): MEASUREMENTS (Male / Female) Normal Values 2D ECHO LV Diastolic Diameter PLAX 4.6 cm 4.2 - 5.9 / 3.9 - 5.3 cm LV Systolic Diameter PLAX 3.7 cm IVS Diastolic Thickness 1.5 cm 0.6 - 1.0 / 0.6 - 0.9 cm LVPW Diastolic Thickness 1.6 cm 0.6 - 1.0 / 0.6 - 0.9 cm LV Relative Wall Thickness 0.7 LVOT Diameter 2.3 cm LV Diastolic Volume MOD 4C 196.7 cm??? LV Systolic Volume MOD 4C 118.8 cm??? LV Ejection Fraction MOD 4C 39.6 % LV Cardiac Index MOD 4C 2516.3 cm???/min???m??? LV Diastolic Length 4C 9.3 cm LV Systolic Length 4C 8.2 cm LV Cardiac Index 4C AL 2710.0 cm???/min???m??? LV Diastolic Volume MOD 2C 147.1 cm??? LV Systolic Volume MOD 2C 90.8 cm??? LV Ejection Fraction MOD 2C 38.3 % LV Cardiac Index MOD 2C 1818.6 cm???/min???m??? LV Diastolic Length 2C 8.3 cm LV Systolic Length 2C 8.2 cm LV Cardiac Index 2C AL 2218.1 cm???/min???m??? Aorta at Sinuses Diameter 3.4 cm DOPPLER AV Peak Velocity 104.4 cm/s AV Peak Gradient 4.4 mmHg AV Mean Velocity 71.6 cm/s AV Mean Gradient 2.4 mmHg AV Velocity Time Integral 17.9 cm LVOT Peak Velocity 93.5 cm/s LVOT Peak Gradient 3.5 mmHg LVOT Velocity Time Integral 16.0 cm LVOT Stroke Volume 66.9 cm??? LVOT Stroke Volume Index 29.2 ml/m??? LVOT Cardiac Index 2159.6 cm???/min???m??? AV Area Cont Eq vti 3.7 cm??? AV Area Cont Eq pk 3.8 cm??? Mitral E Point Velocity 47.3 cm/s Mitral A Point Velocity 65.4 cm/s Mitral E to A Ratio 0.7 MV Deceleration Time 155.1 ms MV E' Velocity 4.9 cm/s Mitral E to MV E' Ratio 9.7 LV E' Lateral Velocity 7.4 cm/s Mitral E to LV E' Lateral Ratio 6.4 PV Peak Velocity 98.3 cm/s PV Peak Gradient 3.9 mmHg FINDINGS Left Ventricle Left ventricular ejection fraction is estimated at 40 %. Moderately increased septal wall thickness. Mild left ventricular dilatation. There is hypokinesia involving the mid to anteroapical wall adjoining anteroapical lateral wall and mid to distal anteroseptal wall. Right Ventricle Normal right ventricular size and function. Unable to estimate the right ventricular systolic pressure. Right Atrium Normal right atrial size. Left Atrium Mildly increased left atrial area. Mitral Valve Structurally normal mitral valve. No evidence for mitral valve prolapse. No mitral stenosis. Trace mitral regurgitation. Aortic Valve Trileaflet aortic valve. No aortic valve stenosis or regurgitation. Tricuspid Valve Structurally normal tricuspid valve. No tricuspid stenosis. No tricuspid regurgitation. Pulmonic Valve Structurally normal pulmonic valve. No pulmonic stenosis. Mild pulmonic regurgitation. Pericardium No pericardial effusion. Aorta Aortic annulus normal. Ascending aorta not well visualized. CONCLUSIONS Left ventricle is mildly dilated with akinesia to severe hypokinesia involving the mid to distal anteroseptal apical and anterolateral wall with estimate ejection fraction of 35 to 40%. Mild mitral and tricuspid regurgitation. No pericardial effusion Previewed by: Dr. Ciro Albert MD (Electronically Signed) Final Date: 06 December 2024 10:21
[2024-12-06] MEDS: DAPAGLIFLOZIN PROPANEDIOL 10 MG TABLET PO SCH (11:08)
--- NOTE | 2024-12-06 12:14 | P.PN ---
Subjective Progress Note Date: 12/06/24 12/05/2024 patient seen and examined at bedside. Patient still having chest pain overnight. Cardiology plans to have repeat cath today. Labs today: WBC 10.4, hemoglobin 14.5, platelet count 2 26,000, sodium 138, potassium 4.2, chloride 105, bicarb 25, BUN 13, creatinine 0.88, glucose 115. Lipid panel showed elevated triglycerides at 163, LDL 97, HDL 34.3. TSH 0.8 12/06/2024 patient seen and examined at bedside. No acute events overnight. Cardiac cath with stents placed done yesterday. No new complaints Labs: WBC 10.6 hemoglobin 14.5, platelet count 1 98,000, sodium 133, potassium 3.9, bicarb 24, BUN 10, creatinine 0.89, calcium 9.2. Troponin 68.7 Imaging; echocardiogram showed left ventricular ejection fraction estimated 40%, moderately increased septal wall thickness and mild dilatation with akinesia to severe hypokinesia, mild mitral and tricuspid regurgitation. Review of systems: Pertinent positives and negatives as discussed in HPI, a complete review of systems was performed and all other systems are negative. Physical examination: Vital signs reviewed General: non toxic, no distress, appears at stated age Derm: no unusual rashes/lesions, warm Head: atraumatic, normocephalic, symmetric Eyes: EOMI, anicteric sclera, pupils equal round reactive to light ENT: Nose and ears atraumatic Neck: No cervical lymphadenopathy, trachea midline, supple Mouth: no lip lesion, mucus membranes moist Cardiovascular: S1S2 reg, no murmur Lungs: CTA bilateral, no rhonchi, no rales, no accessory muscle use Abdominal: soft, nontender to palpation, no guarding Ext: muscle strength 5 out of 5 in all 4 extremities grossly, no gross muscle atrophy, no contractures, positive dorsalis pedis pulse present on right lower extremity and both upper extremities, no edema, left prosthetic leg noted Neuro: CN II-XI grossly intact, no gross focal neuro deficits Psych: Alert and oriented x3, appropriate affect and mood Assessment/Plan: 53-year-old male with hypertension, gout here for evaluation of chest pain. Found to have STEMI on EKG. Status post cath with LAD stent day Active: #. Acute STEMI status post LAD cath with stents placed #. Ischemic cardiomyopathy EF 35 to 40% #. Hyperlipidemia -Continue aspirin 81 mg daily, atorvastatin 80 mg nightly, metoprolol 25 twice daily, Effient 10 mg daily -Cardiology following. Initiated Zestril 2.5 p.o., metoprolol tartrate p.o., Aldactone 25 mg p.o. -Initiated dapagliflozin 10 mg p.o. daily -Echocardiogram left ventricular ejection fraction estimated 40%, moderately increased septal wall thickness and mild dilatation with akinesia to severe hypokinesia, mild mitral and tricuspid regurgitation. -Last troponin 67.8 -A1c 5.9 - lipid panel showed elevated triglycerides -TSH normal at 0.8 #. Anion gap metabolic acidosis, resolved Chronic: #. Gout #. Neuropathy -Restart home allopurinol, colchicine CODE STATUS: Full code DVT prophylaxis: Subcu heparin Anticipated discharge date: Pending clinical course Anticipated discharge place: Pending clinical course Georgette Goldstein MD PGY-1/Jigger Operator Dictation was produced using [employer] dictation software. please excuse any grammatical, word or spelling errors. I have seen and evaluated the patient today. Discussed with the resident and agree with the residents finding and plan as documented in the resident's note. Changes highlighted in blue font. Objective - Vital Signs Vital signs: Vital Signs Temp 98.4 F 12/06/24 04:00 Pulse 81 12/06/24 06:00 Resp 22 12/06/24 06:00 BP 105/70 12/06/24 06:00 Pulse Ox 94 L 12/06/24 06:00 FiO2 4 12/05/24 00:00 Intake & Output 12/05/24 12/05/24 12/06/24 06:59 18:59 06:59 Intake Total 128.9 1641 240 Output Total 1125 1700 1575 Balance -996.1 -59 -1335 Weight 113 kg 113 kg 113.2 kg Intake: IV 128.9 1101 Sodium Chloride 0.9% 1, 110 10 000 ml In Empty Bag 1 bag @ 1 ML/KG/HR 105.233 mls /hr IV .Q9H31M [facility] Rx#: [id number] Sodium Chloride 0.9% 1, 791 000 ml In Empty Bag 1 bag @ 1 ML/KG/HR 113 mls/hr IV .Q8H51M [facility] Rx#: [id number] Tirofiban 12.5MG-250Ml Ns 18.9 250 ml @ 0 mls/hr IV . [facility] Rx#: [id number] Oral 540 240 Output: Urine 1125 1700 1575 Other: Voiding Method Urinal Urinal Urinal - Labs CBC & Chem 7: 12/06/24 05:32 12/06/24 05:32 Labs: Abnormal Lab Results - Last 24 Hours (Table) 12/05/24 12/05/24 12/06/24 Range/Units 04:19 18:41 05:32 Neutrophils # (1.3-7.7) k/uL Sodium 133 L (137-145) mmol/L Troponin I 68.700 H* (0.000-0.034) ng/mL Triglycerides 163.00 H (0.00-149.00) mg/dL HDL Cholesterol 34.30 L (40.00-60.00) mg/dL 12/06/24 Range/Units 05:32 Neutrophils # 7.9 H (1.3-7.7) k/uL Sodium (137-145) mmol/L Troponin I (0.000-0.034) ng/mL Triglycerides (0.00-149.00) mg/dL HDL Cholesterol (40.00-60.00) mg/dL
--- NOTE | 2024-12-06 15:04 | P.PN ---
Subjective Progress Note Date: 12/06/24 The patient is a 53-year-old male who presented to the hospital with new onset of chest discomfort. He was found to have acute anterior wall myocardial infarction and acute occlusion of the proximal LAD. He underwent stenting of his LAD on December [address] Monroe. The patient developed chest pain overnight and ST depression noted in lateral limb leads. Patient returned to the OR, where he underwent repeat stenting. According to interventionalists procedure notes there is a possibility of a flap dropping into the vessel throughout the stent as well as the need for mid LAD stenting. Patient interviewed and examined sitting up in the recliner chair. He states he has done well since he was in the operating room yesterday morning. No recurrence in symptoms. No dizziness or lightheadedness when standing. No palpitations. GENERAL: Well-appearing, well-nourished and in no acute distress. NECK: Supple without JVD or thyromegaly. LUNGS: Breath sounds clear to auscultation bilaterally. Respiration equal and unlabored. No wheezes, rales or rhonchi. HEART: Regular rate and rhythm without murmurs, rubs or gallops. S1 and S2 heard. EXTREMITIES: Normal range of motion, no edema. No clubbing or cyanosis. Peripheral pulses intact and strong. Bilateral cath sites are clean dry and intact TELEMETRY: Sinus rhythm overnight LABS: Sodium 133, potassium 3.9, BUN 10, creatinine 0.89, WBC 10.6, hemoglobin 14.5, hematocrit 46.3 and platelet 198. Triglycerides 163, LDL 97 and HDL 34 IMPRESSION: ST elevated myocardial infarction, anterior Coronary artery disease Ischemic cardiomyopathy, EF 35 to 40%, mid to distal anteroseptal apical and anterolateral hypokinesis PLAN: Continue maximal medical treatment for cardiomyopathy Continue dual antiplatelet therapy Encourage ambulation throughout the unit and downgrade to 3 S. Anticipate discharge within the next 24 to 48 hours I am dictating on behalf of Dr Juarez Russell's history/physical and assessment/plan. Objective - Vital Signs Vital signs: Vital Signs Temp 98.0 F 12/06/24 12:00 Pulse 80 12/06/24 12:00 Resp 14 12/06/24 12:00 BP 96/66 12/06/24 12:00 Pulse Ox 97 12/06/24 12:00 FiO2 4 03/17/25 00:00 Intake & Output 12/05/24 12/06/24 12/06/24 18:59 06:59 18:59 Intake Total 1641 240 Output Total 1700 1575 0 Balance -59 -1335 0 Weight 113 kg 113.2 kg Intake: IV 1101 Sodium Chloride 0.9% 1, 10 000 ml In Empty Bag 1 bag @ 1 ML/KG/HR 105.233 mls /hr IV .Q9H31M [facility] Rx#: [id number] Sodium Chloride 0.9% 1, 791 000 ml In Empty Bag 1 bag @ 1 ML/KG/HR 113 mls/hr IV .Q8H51M [facility] Rx#: [id number] Oral 540 240 Output: Urine 1700 1575 0 Other: Voiding Method Urinal Urinal Toilet - Labs CBC & Chem 7: 12/06/24 05:32 12/06/24 05:32 Labs: Abnormal Lab Results - Last 24 Hours (Table) 12/05/24 12/06/24 12/06/24 Range/Units 18:41 05:32 05:32 Neutrophils # 7.9 H (1.3-7.7) k/uL Sodium 133 L (137-145) mmol/L Troponin I 68.700 H* (0.000-0.034) ng/mL
[2024-12-07 00:28] VITALS: RESP 18
[2024-12-07 08:22] VITALS: BP 126/64; PULSE 80; TEMP 97.8
[2024-12-07] MEDS ORDERED: METOPROLOL SUCCINATE (ER) 50 MG TAB.ER.24H PO SCH (09:45)
[2024-12-07] MEDS: METOPROLOL TARTRATE 25 MG TAB PO STA (12:19)
--- NOTE | 2024-12-07 13:22 | P.PN ---
Subjective HISTORY OF PRESENT ILLNESS: Patient examined this morning the bedside. Patient currently denies chest pain or pressure. He denies shortness of breath. Vital signs are stable. Patient has been up ambulating without any difficulty. PHYSICAL EXAM: VITAL SIGNS: Reviewed. GENERAL: Well-developed in no acute distress. NECK: Supple. No JVD or thyromegaly LUNGS: Respirations even and unlabored. Lungs essentially clear to auscultation bilaterally. HEART: Regular rate and rhythm. S1 and S2 heard. EXTREMITIES: Normal range of motion. No clubbing or cyanosis. Peripheral pulses intact. No lower extremity edema ASSESSMENT: Acute STEMI, status post stenting of the proximal LAD 12/04/2024, with repeat heart cath 12/05/2024 with stenting to proximal LAD Ischemic cardiomyopathy PLAN: Continue dual antiplatelet therapy with aspirin and Effient for 12 months Continue high intensity statin. LDL goal less than 70. Continue additional cardiac medications Patient stable for discharge home today from a cardiac standpoint Patient to follow-up postdischarge in the office Nurse practitioner note has been reviewed by physician. Signing provider agrees with the documented findings, assessment, and plan of care documented by [employer] as a scribe. Objective - Vital Signs Vital signs: Vital Signs Temp 97.8 F 12/07/24 08:20 Pulse 80 12/07/24 08:20 Resp 18 12/07/24 08:20 BP 126/64 12/07/24 08:20 Pulse Ox 97 12/07/24 08:20 FiO2 4 12/05/24 00:00 Intake & Output 12/06/24 12/07/24 12/07/24 18:59 06:59 18:59 Intake Total 240 118 Output Total 0 Balance 240 118 Weight 107 kg Intake: Oral 240 118 Output: Urine 0 Other: Voiding Method Toilet Toilet Toilet # Voids 2 1 1 - Labs CBC & Chem 7: 12/06/24 05:32 12/06/24 05:32
--- NOTE | 2024-12-07 15:34 | P.DS ---
Providers Date of admission: 12/04/24 11:33 Expected date of discharge: 12/07/24 Attending physician: Antonino Pulido Consults: 12/04/24 11:35 Consult Physician Urgent Consulting Provider: Ralu Mcclellan Consult Reason/Comments: acs Do you want consulting provider notified?: Already Contacted 12/04/24 13:59 Consult Physician Routine Consulting Provider: [facility] Consult Reason/Comments: Post Interventional Patient Do you want consulting provider notified?: Already Contacted 12/05/24 10:20 Consult Physician Routine Consulting Provider: [facility] Consult Reason/Comments: Post Interventional Patient Do you want consulting provider notified?: Already Contacted Primary care physician: [facility] Hospital Course: Hospital Course: Patient is a 53-year-old male with history of hypertension, and gout presented with STEMI. He claims that he woke up this morning with his chest and a Cooper, pain moved from left to right, and had diaphoresis. In the ED, temperature was 97.9, pulse 65, respiratory rate 30, blood pressure 127/92, saturating 100% on room air. WBC 6.2, hemoglobin 15.9, APTT 20.2, potassium 4.2, creatinine 1.17, bicarb 18, anion gap 15, troponin 0.923, magnesium 2. Chest x-ray independently interpreted, showed no opacities. EKG independently interpreted, shows ST elevation in anterior and septal leads, ST depression in inferior leads. Patient was admitted for the evaluation of acute STEMI. Cardiac telemetry, aspirin, atorvastatin, echocardiogram, trending troponins, A1c, lipid panel, TSH were ordered. Cardiology consulted. Cardiac cath was done and showed successful stenting of the proximal LAD and 100% stenosis. The distal LAD has intimal disease that could be related to underperfusion and it was decided to be treated medically for now. Echocardiogram showed left ventricular ejection fraction estimated 40%, moderately increased septal wall thickness and mild dilatation with akinesia to severe hypokinesia, mild mitral and tricuspid regurgitation. Patient experienced persistent chest pain overnight after initial cath and he was sent in again to the [facility] for reevaluation. They reported additional stenting of the mid LAD and additional stenting of the distal segments, and insertion of a stent inside the initial stent of the proximal LAD. Patient symptoms improved throughout hospital stay. He was cleared for discharge today and was sent home on oral Aldactone, aspirin, prasugrel, metoprolol succinate, dapagliflozin, Lipitor and lisinopril. His oral Viagra was discontinued. He is advised to follow-up with PCP and jury consultant on outpatient basis. Final Diagnosis: #. Acute STEMI status post LAD cath with stents placed #. Ischemic cardiomyopathy EF 35 to 40% #. Hyperlipidemia #. Anion gap metabolic acidosis, resolved #. Gout #. Neuropathy Physical examination: Vital signs reviewed General: non toxic, no distress Derm: no unusual rashes/lesions, warm Head: atraumatic, normocephalic, symmetric Eyes: EOMI, anicteric sclera, pupils equal round reactive to light ENT: Nose and ears atraumatic Neck: No cervical lymphadenopathy, trachea midline, supple Mouth: no lip lesion, mucus membranes moist Cardiovascular: S1S2 reg, no murmur Lungs: CTA bilateral, no rhonchi, no rales, no accessory muscle use Abdominal: soft, nondistended, nontender to palpation, no guarding Ext: muscle strength 5 out of 5 in all 4 extremities grossly, no gross muscle atrophy, no contractures, positive dorsalis pedis pulse present on right lower extremity and both upper extremities, no edema, left prosthetic leg noted Neuro: CN II-XI grossly intact, no gross focal neuro deficits Psych: Alert, oriented, appropriate affect and mood A total of 38 minutes of time were spent preparing this complex discharge summary. Patient was discharged on 12/07/2024 at 954. I have seen and evaluated the patient today. Discussed with the resident and agree with the residents finding and plan as documented in the resident's note. Changes highlighted in blue font. Patient Condition at Discharge: Stable Plan - Discharge Summary Discharge Rx Participant: No New Discharge Prescriptions: New Spironolactone [Aldactone] 25 mg PO DAILY #90 tab Aspirin 81 mg PO DAILY #90 tab Prasugrel [Effient] 10 mg PO DAILY #90 tab Metoprolol Succinate (ER) [Toprol XL] 50 mg PO DAILY #90 tab Dapagliflozin Propanediol [Farxiga] 10 mg PO DAILY #90 tab Atorvastatin [Lipitor] 80 mg PO HS #90 tab lisinopriL [Zestril] 2.5 mg PO BID #90 tab Continue Ergocalciferol (Vitamin D2) [Drisdol (50,000 Iu)] 1,250 mcg PO Q30D Cetirizine HCl [Zyrtec] 10 mg PO DAILY PRN PRN Reason: Allergy Symptoms Omeprazole 20 mg PO DAILY PRN PRN Reason: acid reflux Colchicine [Colcrys] 0.6 mg PO HS allopurinoL [Zyloprim] 200 mg PO HS Discontinued Sildenafil Citrate [Viagra] 100 mg PO DAILY PRN PRN Reason: e.d. Discharge Medication List Cetirizine HCl [Zyrtec] 10 mg PO DAILY PRN 12/04/24 [History] Colchicine [Colcrys] 0.6 mg PO HS 12/04/24 [History] Ergocalciferol (Vitamin D2) [Drisdol (50,000 Iu)] 1,250 mcg PO Q30D 12/04/24 [History] Omeprazole 20 mg PO DAILY PRN 12/04/24 [History] allopurinoL [Zyloprim] 200 mg PO HS 12/04/24 [History] Aspirin 81 mg PO DAILY #90 tab 12/07/24 [Rx] Atorvastatin [Lipitor] 80 mg PO HS #90 tab 12/07/24 [Rx] Dapagliflozin Propanediol [Farxiga] 10 mg PO DAILY #90 tab 12/07/24 [Rx] Metoprolol Succinate (ER) [Toprol XL] 50 mg PO DAILY #90 tab 12/07/24 [Rx] Prasugrel [Effient] 10 mg PO DAILY #90 tab 12/07/24 [Rx] Spironolactone [Aldactone] 25 mg PO DAILY #90 tab 12/07/24 [Rx] lisinopriL [Zestril] 2.5 mg PO BID #90 tab 12/07/24 [Rx] Follow up Appointment(s)/Referral(s): All Monroe MD [STAFF PHYSICIAN] - 1 Week Adarsh Nolen DO [Primary Care Provider] - 1-2 days Patient Instructions/Handouts: Heart Attack (DC), Heart Failure (DC) Activity/Diet/Wound Care/Special Instructions: Please see your PCP and jury consultant. Discharge Disposition: HOME SELF-CARE
[2024-12-08] MEDS ORDERED: METOPROLOL SUCCINATE (ER) 50 MG TAB.ER.24H PO SCH (09:45)
== END 2024-12-07 12:24 | disposition home or self-care (01) | DRG 321 ==
LOC: EC 11:06 → 2SICU 11:33 → 3SCARD 12-06 13:22
PROVIDERS: ADMIT Student in an Organized Health Care Education/Training Program; ATTEND Student in an Organized Health Care Education/Training Program
PROC: 02C03ZZ Extirpation of Matter from Coronary Artery, One Artery, Percutaneous Approach (ICD-10-PCS; 2024-12-05)
PROC: 4A023N7 Measurement of Cardiac Sampling and Pressure, Left Heart, Percutaneous Approach (ICD-10-PCS; 2024-12-05)
PROC: B2111ZZ Fluoroscopy of Multiple Coronary Arteries using Low Osmolar Contrast (ICD-10-PCS; 2024-12-05)
PROC: B240ZZ3 Ultrasonography of Single Coronary Artery, Intravascular (ICD-10-PCS; 2024-12-05)
PROC: 027034Z Dilation of Coronary Artery, One Artery with Drug-eluting Intraluminal Device, Percutaneous Approach (ICD-10-PCS; principal; 2024-12-05 19:25)
PROC: 027037Z Dilation of Coronary Artery, One Artery with Four or More Drug-eluting Intraluminal Devices, Percutaneous Approach (ICD-10-PCS; 2024-12-05 19:25)
DX: I21.09 ST elevation (STEMI) myocardial infarction involving other coronary artery of anterior wall (principal); E87.20 Acidosis, unspecified; F32.A Depression, unspecified; I10 Essential (primary) hypertension; Z97.14 Presence of artificial left leg (complete) (partial); F43.10 Post-traumatic stress disorder, unspecified; G62.9 Polyneuropathy, unspecified; M10.9 Gout, unspecified; I25.5 Ischemic cardiomyopathy; I25.10 Atherosclerotic heart disease of native coronary artery without angina pectoris; I25.2 Old myocardial infarction; E78.1 Pure hyperglyceridemia; F41.9 Anxiety disorder, unspecified; Z79.02 Long term (current) use of antithrombotics/antiplatelets; Z79.82 Long term (current) use of aspirin; Z79.899 Other long term (current) drug therapy; Z82.49 Family history of ischemic heart disease and other diseases of the circulatory system
CPT/HCPCS: 36415; 71045; 80048; 80053; 80061; 83036; 83735; 84443; 84484; 85025; 85610; 85730; 92973; 92978; 93005; 93306; 93458; 96374; 96375; 99291